=== PATIENT | female | born 1985 | race Two or more races ===

== ENCOUNTER 2021-01-18 00:18 | Emergency (ER) | payer SELFPAY ==
[~2021-01-18] VITALS: Ht 160 cm; Wt 71.8 kg
[2021-01-18 04:05] VITALS: BP 102/69
[2021-01-18] MEDS ORDERED: guaiFENesin-DM 100/10mg/5ml SYR PO ONE (04:30)
== END 2021-01-18 06:02 | disposition home or self-care (01) ==
LOC: ER 00:18
DX: J40 Bronchitis, not specified as acute or chronic (principal); Z20.822 Contact with and (suspected) exposure to COVID-19
CPT/HCPCS: 36415; 71045; 87426; 87804

== ENCOUNTER 2022-08-08 21:58 | Emergency (ER) | payer MEDICAID, OTHER ==
[~2022-08-08] VITALS: Ht 160 cm; Wt 76.5 kg
[2022-08-08 22:50] LABS: Urine Bacteria NONE SEEN /hpf (None Seen); Urine Blood Negative /uL (Negative); Urine Mucus FEW (None Seen); Urine Specific Gravity 1.022 (1.001-1.035); Urine WBC 1 /hpf (0 - 5)
[2022-08-09] MEDS ORDERED: DEXT1SYP9 PO (00:05)
[2022-08-09 00:17] VITALS: BP 109/65
== END 2022-08-09 00:22 | disposition home or self-care (01) ==
LOC: ER 21:58
DX: R04.2 Hemoptysis (principal); B34.9 Viral infection, unspecified; Z20.822 Contact with and (suspected) exposure to COVID-19
CPT/HCPCS: 36415; 71045; 81001; 87426

== ENCOUNTER 2025-03-21 11:52 | Emergency (ER) | payer OTHER, MEDICAID ==
[~2025-03-21] VITALS: Ht 160 cm; Wt 78.8 kg
[~2025-03-21 11:52] MED LIST: DEXT1SYP9 PO
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
[2025-03-21 14:12] LABS: Urine Protein, UAD 1+ (Negative)
[2025-03-21 14:20] VITALS: BP 142/80; PULSE 76; RESP 16; TEMP 98.2; O2SAT 98
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
[2025-03-21] MEDS ORDERED: NITR-87 PO (14:26)
[2025-03-21] MEDS ORDERED: IBUP-1455 PO (14:26)
== END 2025-03-21 14:38 | disposition home or self-care (01) ==
LOC: ER 11:52
DX: N30.90 Cystitis, unspecified without hematuria (principal); M25.561 Pain in right knee; R07.89 Other chest pain; Z04.89 Encounter for examination and observation for other specified reasons; Y08.89XA Assault by other specified means, initial encounter; Y93.89 Activity, other specified; Y92.89 Other specified places as the place of occurrence of the external cause; Y99.8 Other external cause status
CPT/HCPCS: 70450; 71101; 73562; 74176; 81001